=== PATIENT | female | born 1970 | race African-American/Black ===

== ENCOUNTER 2016-09-28 07:38 | Day surgery (SDC) | payer BC ==
[2016-09-28] MEDS ORDERED: IRON SUCROSE INJECTION 100 MG in SODIUM CHLORIDE 100 ML IVPB ONE (10:00)
[2016-09-28 16:53] LABS: BASOPHIL 1.1 % (0-2.0); EOSINOPHIL 1.4 % (0-4.5); MCHC 28.9 g/dl (32.0-36.0); MEAN CELL VOLUME 60.5 fl (80-96); MEAN PLT VOLUME 9.1 fl (7.5-11.1); PLATELET COUNT 285 K/MM3 (134-434); RDW 24.7 % (11.6-15.6); WHITE BLOOD COUNT 5.2 K/mm3 (4.0-10.0)
[2016-09-28 17:12] LABS: MCH 17.5 pg (25.7-33.7)
[2016-09-28 17:43] VITALS: BP 137/40; PULSE 84; TEMP 98.2
--- NOTE | 2016-09-28 21:13 | HP ---
Satellite [facility] - Past Medical History Allergies/Adverse Reactions: Allergies Allergy/AdvReac Type Severity Reaction Status Date / Time No Allergy Information Allergy Verified 09/27/16 16:00 Available Satellite Physical Exam - Physical Examination Vital Signs: Vital Signs Period Temp Pulse Resp BP Sys/[place] Pulse Ox Last 24 Hr 98.2 F 84 20 137/40
== END 2016-09-28 17:52 | disposition home or self-care (01) ==
LOC: JONCNONCHE 07:38 → J7W 16:25 → JONCNONCHE 17:52
PROVIDERS: ATTEND Internal Medicine Hematology & Oncology
PROC: 3E033GC Introduction of Other Therapeutic Substance into Peripheral Vein, Percutaneous Approach (ICD-10-PCS; principal; 2016-09-28)
DX: D50.9 Iron deficiency anemia, unspecified (principal)
CPT/HCPCS: 96365; J1756; 36415; 85025

== ENCOUNTER 2016-10-02 15:31 | Day surgery (SDC) | payer BC ==
[2016-10-02] MEDS ORDERED: IRON SUCROSE INJECTION 100 MG in SODIUM CHLORIDE 100 ML IVPB ONE (16:15)
[2016-10-02 16:48] LABS: BASOPHIL 1.4 % (0-2.0); EOSINOPHIL 0.6 % (0-4.5); MCHC 28.8 g/dl (32.0-36.0); MEAN CELL VOLUME 62.5 fl (80-96); MEAN PLT VOLUME 8.9 fl (7.5-11.1); NEUTROPHILS 62.9 % (42.8-82.8); PLATELET COUNT 323 K/MM3 (134-434); RDW 27.1 % (11.6-15.6); WHITE BLOOD COUNT 5.3 K/mm3 (4.0-10.0)
[2016-10-02 18:33] LABS: PLATELET ESTIMATE ADEQUATE (NORMAL)
[2016-10-02 18:34] LABS: ANISOCYTOSIS 3+; HYPOCHROMIA 3+; MACROCYTOSIS 1+; MICROCYTOSIS 2+; OVALOCYTE 1+; POIKILOCYTOSIS 1+; POLYCHROMASIA 1+; TARGET CELLS 1+
--- NOTE | 2016-10-02 20:28 | HP ---
Satellite H - Chief Complaint Chief Complaint: Patient here for f/u of anemia. reports exertioonal sob. severe fatigue.dizziness History Source: Patient Limitations to Obtaining History: No Limitations - Past Medical History Allergies/Adverse Reactions: Allergies Allergy/AdvReac Type Severity Reaction Status Date / Time No Known Drug Allergies Allergy Verified 10/02/16 15:55 ...LMP: 10/01/16 Satellite Physical Exam - Physical Examination Vital Signs: Vital Signs Period Temp Pulse Resp BP Sys/[place] Pulse Ox Last 24 Hr 97.5 F-98.7 F 71-93 18-18 132-138/69-88 General Appearance: Well Nourished Lung: Clear to auscultation Heart: Regular rate & rhythm, Normal S1, Normal S2 Abdomen: Soft, No tenderness, Normal bowel sounds Extremities: No edema Neurological: Intact Satellite Impression/Plan - Impression/Plan Impression: 46 y/o patient with iron deficiency anemia. symptomatic anemia. will transfuse 1 unit PRBCS. IV iron weekly
[2016-10-03 07:33] LABS: MEAN CELL VOLUME 63.9 fl (80-96); MEAN PLT VOLUME 8.8 fl (7.5-11.1); PLATELET COUNT 278 K/MM3 (134-434); WHITE BLOOD COUNT 4.6 K/mm3 (4.0-10.0)
[2016-10-03 07:51] LABS: MCH 19.1 pg (25.7-33.7)
[2016-10-03 14:03] VITALS: BP 140/70; PULSE 77; TEMP 99.1
== END 2016-10-03 15:35 | disposition home or self-care (01) ==
LOC: JONCNONCHE 15:31 → J7W 15:31 → JONCNONCHE 10-03 15:35
PROVIDERS: ATTEND Internal Medicine Hematology & Oncology
PROC: 3E033GC Introduction of Other Therapeutic Substance into Peripheral Vein, Percutaneous Approach (ICD-10-PCS; principal; 2016-10-02)
PROC: 30233N1 Transfusion of Nonautologous Red Blood Cells into Peripheral Vein, Percutaneous Approach (ICD-10-PCS; 2016-10-02)
DX: D50.9 Iron deficiency anemia, unspecified (principal)
CPT/HCPCS: 36430; 96365; J1756; 36415; 36511; 85025; 85027; 86850; 86900; 86901; 86922; P9038; P9058

== ENCOUNTER 2016-10-09 15:37 | Day surgery (SDC) | payer BC ==
[2016-10-09] MEDS ORDERED: IRON SUCROSE INJECTION 100 MG in SODIUM CHLORIDE 95 ML IVPB ONE (16:45)
[2016-10-09 19:20] VITALS: BP 135/74; PULSE 77; TEMP 98.2
[2016-10-09 19:22] VITALS: BMI 30.9
== END 2016-10-09 19:01 | disposition home or self-care (01) ==
LOC: JONCNONCHE 15:37 → J7W 15:37 → JONCNONCHE 19:01
PROVIDERS: ATTEND Internal Medicine Hematology & Oncology
PROC: 3E033GC Introduction of Other Therapeutic Substance into Peripheral Vein, Percutaneous Approach (ICD-10-PCS; principal; 2016-10-09)
DX: D50.9 Iron deficiency anemia, unspecified (principal)
CPT/HCPCS: 96365; J1756

== ENCOUNTER 2016-10-16 16:19 | Day surgery (SDC) | payer BC ==
[2016-10-16] MEDS ORDERED: IRON SUCROSE INJECTION 100 MG in SODIUM CHLORIDE 100 ML IVPB ONE (16:45)
[2016-10-16 18:35] VITALS: BP 155/99; PULSE 72; TEMP 98.3
[2016-10-18 08:07] LABS: SERUM IRON 31 ug/dL (27-159); TOTAL IRON BINDING CAPACITY 375 ug/dL (250-450); UIBC 344 ug/dL (131-425)
== END 2016-10-16 18:40 | disposition home or self-care (01) ==
LOC: JCHEMO 16:19 → J7W 16:22 → JCHEMO 18:40
PROVIDERS: ATTEND Internal Medicine Hematology & Oncology
PROC: 3E033GC Introduction of Other Therapeutic Substance into Peripheral Vein, Percutaneous Approach (ICD-10-PCS; principal; 2016-10-16)
DX: D50.9 Iron deficiency anemia, unspecified (principal)
CPT/HCPCS: 36415; 82728; 83540; 83550; 96365; J1756

== ENCOUNTER 2016-10-23 08:04 | Day surgery (SDC) | payer BC ==
--- NOTE | 2016-10-23 16:20 | HP ---
Satellite [facility] - Chief Complaint History of Present Illness: Here for venofer. She reports much better after receiving blood last time and she feels no SOB - Past Medical History Allergies/Adverse Reactions: Allergies Allergy/AdvReac Type Severity Reaction Status Date / Time No Known Drug Allergies Allergy Verified 10/02/16 15:55 ...LMP: 10/01/16 Satellite Physical Exam - Physical Examination General Appearance: Well Nourished, Well Developed, Alert & Oriented x3 Lung: Clear to auscultation Heart: Regular rate & rhythm, Normal S1, Normal S2 Abdomen: Soft, No tenderness Extremities: No edema Neurological: Alert, Oriented Satellite Impression/Plan - Impression/Plan Impression: Will proceed with IV venofer today. She reports feeling much better. she is aware to follow-up in the office. She will come for next dose of venofer next week
[2016-10-23] MEDS ORDERED: IRON SUCROSE INJECTION 100 MG in SODIUM CHLORIDE 100 ML IVPB ONE (16:30)
[2016-10-23 17:55] VITALS: TEMP 98.5
[2016-10-23 18:37] VITALS: BP 142/89; PULSE 87
== END 2016-10-23 18:43 | disposition home or self-care (01) ==
LOC: JONCCHEMO 08:04 → J7W 15:53 → JONCCHEMO 18:43
PROVIDERS: ATTEND Internal Medicine Hematology & Oncology
PROC: 3E033GC Introduction of Other Therapeutic Substance into Peripheral Vein, Percutaneous Approach (ICD-10-PCS; principal; 2016-10-23)
DX: D50.9 Iron deficiency anemia, unspecified (principal)
CPT/HCPCS: 82272; 96365; J1756

== ENCOUNTER 2016-10-30 07:23 | Day surgery (SDC) | payer BC ==
[2016-10-30 12:44] VITALS: PULSE 81; TEMP 98.8
[2016-10-30 13:23] VITALS: BP 102/74
[2016-10-30] MEDS ORDERED: IRON SUCROSE INJECTION 100 MG in SODIUM CHLORIDE 100 ML IVPB ONE (14:00)
== END 2016-10-30 14:43 | disposition home or self-care (01) ==
LOC: JONCNONCHE 07:23 → J7W 12:37 → JONCNONCHE 14:43
PROVIDERS: ATTEND Internal Medicine Hematology & Oncology
PROC: 3E033GC Introduction of Other Therapeutic Substance into Peripheral Vein, Percutaneous Approach (ICD-10-PCS; principal; 2016-10-30)
DX: D50.9 Iron deficiency anemia, unspecified (principal)
CPT/HCPCS: 96365; J1756

== ENCOUNTER 2016-12-10 13:48 | Day surgery (SDC) | payer BC ==
[~2016-12-10 13:48] MED LIST: IRON SUCROSE INJECTION 100 MG in SODIUM CHLORIDE 100 ML IVPB ONE
[2016-12-10 17:26] VITALS: BP 123/75; PULSE 83; TEMP 98.2
== END 2016-12-10 17:15 | disposition home or self-care (01) ==
LOC: JONCNONCHE 13:48 → J7W 16:35 → JONCNONCHE 17:15
PROVIDERS: ATTEND Internal Medicine Hematology & Oncology
PROC: 3E033GC Introduction of Other Therapeutic Substance into Peripheral Vein, Percutaneous Approach (ICD-10-PCS; principal; 2016-12-10)
DX: D50.9 Iron deficiency anemia, unspecified (principal); K90.9 Intestinal malabsorption, unspecified
CPT/HCPCS: 96365; 96417; J1756

== ENCOUNTER 2017-01-15 07:39 | Day surgery (SDC) | payer BC ==
[2017-01-15] MEDS ORDERED: IRON SUCROSE INJECTION 100 MG in SODIUM CHLORIDE 100 ML IVPB ONE (09:00)
[2017-01-15 16:23] VITALS: TEMP 97.9
[2017-01-15 18:01] VITALS: BP 136/85; PULSE 92
== END 2017-01-15 18:42 | disposition home or self-care (01) ==
LOC: JONCNONCHE 07:39 → J7W 15:40 → JONCNONCHE 18:42
PROVIDERS: ATTEND Internal Medicine Hematology & Oncology
PROC: 3E033GC Introduction of Other Therapeutic Substance into Peripheral Vein, Percutaneous Approach (ICD-10-PCS; principal; 2017-01-15)
DX: D50.9 Iron deficiency anemia, unspecified (principal); K90.9 Intestinal malabsorption, unspecified
CPT/HCPCS: 96365; J1756

== ENCOUNTER 2017-02-12 16:10 | Day surgery (SDC) | payer BC ==
[2017-02-12] MEDS ORDERED: IRON SUCROSE INJECTION 100 MG in SODIUM CHLORIDE 95 ML IVPB ONE (16:48)
[2017-02-12 18:04] VITALS: TEMP 98.4
[2017-02-12 18:19] VITALS: BP 139/73; PULSE 83
== END 2017-02-12 18:20 | disposition home or self-care (01) ==
LOC: JONCNONCHE 16:10 → J7W 16:23 → JONCNONCHE 18:20
PROVIDERS: ATTEND Internal Medicine Hematology & Oncology
PROC: 3E033GC Introduction of Other Therapeutic Substance into Peripheral Vein, Percutaneous Approach (ICD-10-PCS; principal; 2017-02-12)
DX: D50.9 Iron deficiency anemia, unspecified (principal)
CPT/HCPCS: 96365; J1756

== ENCOUNTER 2017-03-12 09:12 | Day surgery (SDC) | payer BC ==
[2017-03-11 13:20] VITALS: BMI 33.7
[2017-03-12] MEDS ORDERED: PROPOFOL 20 ML ONE ×3 (10:07)
[2017-03-12 11:17] VITALS: TEMP 97.8
[2017-03-12 12:03] VITALS: BP 129/72; PULSE 63
--- NOTE | 2017-03-15 12:28 | PATH ---
Surgical Pathology Report Patient Name: DEVANTE ORR [facility]. Rec. #: [id number] /Age/Gender: 1970 (Age: 46) / F Account: [id number] Location: U-ENDOSCOPY Taken: 03/12/2017 Received: 03/12/2017 Reported: 03/15/2017 Physicians: Mahnaz Acñua M.D. Specimen(s) Received A: BX JEJUNUM B: BX GASTRIC POUCH POLYP C: BX GASTRIC ANASTOMOSIS D: BX GASTRIC POUCH Clinical History Preoperative diagnosis: Iron deficiency anemia, bariatric surgery status Postoperative diagnosis: Gastric bypass, hiatal hernia, atrophic gastritis, gastric pouch polyp, normal colon screening Final Diagnosis A. JEJUNUM, BIOPSY: SMALL INTESTINAL MUCOSA WITH NO PATHOLOGIC CHANGES. NO HISTOLOGIC EVIDENCE OF GLUTEN SENSITIVE ENTEROPATHY (CELIAC SPRUE) IDENTIFIED. B. STOMACH, GASTRIC POUCH POLYP, BIOPSY: GASTRIC FUNDIC MUCOSA WITH FOCAL ULCERATION. NO ADENOMATOUS OR HYPERPLASTIC CHANGES IDENTIFIED. IMMUNOSTAIN FOR H. PYLORI IS NEGATIVE. C. STOMACH, GASTRIC ANASTOMOSIS, BIOPSY: GASTRIC MUCOSA WITH FOCAL FOVEOLAR HYPERPLASIA, AND SMALL INTESTINAL-TYPE MUCOSA. NO DYSPLASIA IDENTIFIED. IMMUNOSTAIN FOR H. PYLORI IS NEGATIVE. D. STOMACH, POUCH, BIOPSY: GASTRIC FUNDIC MUCOSA WITH FOCAL HYPERPLASTIC CHANGES. FOCAL SUPERFICIAL ULCERATION IS PRESENT. NO ADENOMATOUS CHANGE IDENTIFIED. IMMUNOSTAIN FOR H. PYLORI IS NEGATIVE. Electronically Signed Ajith Cheung M.D. Gross Description A. Received in formalin, labeled "biopsy jejunum" are 4 cat, irregular portions of soft tissue ranging from 0.2-1.1 cm. in greatest dimension. The specimens are submitted in toto in one cassette. B. Received in formalin, labeled "biopsy gastric pouch polyp" is a cat, irregular portion of soft tissue measuring 0.3 cm. in greatest dimension. The specimen is submitted in toto in one cassette. C. Received in formalin, labeled "biopsy gastric anastomosis" are 3 cat, irregular portions of soft tissue ranging from 0.3-0.4 cm. in greatest dimension. The specimens are submitted in toto in one cassette. D. Received in formalin, labeled "biopsy gastric pouch" are 3 cat, irregular portions of soft tissue ranging from 0.1-0.3 cm. in greatest dimension. The specimens are submitted in toto in one cassette. 03/12/201703/12/2017
== END 2017-03-12 12:08 | disposition home or self-care (01) ==
LOC: JASU-ENDO 09:12
PROVIDERS: ATTEND Internal Medicine Gastroenterology
PROC: 0DJD8ZZ Inspection of Lower Intestinal Tract, Via Natural or Artificial Opening Endoscopic (ICD-10-PCS; principal; 2017-03-12 10:15)
DX: D50.9 Iron deficiency anemia, unspecified (principal); Z98.84 Bariatric surgery status
CPT/HCPCS: 84703; 88305-TC; 88342-TC

== ENCOUNTER 2017-04-16 07:22 | Day surgery (SDC) | payer BC ==
[2017-04-16] MEDS ORDERED: IRON SUCROSE INJECTION 100 MG in SODIUM CHLORIDE 100 ML IVPB ONE (10:00)
[2017-04-16 17:10] VITALS: TEMP 97.9
[2017-04-16 17:12] VITALS: BP 149/88; PULSE 83
== END 2017-04-16 17:12 | disposition home or self-care (01) ==
LOC: JONCNONCHE 07:22 → J7W 16:05 → JONCNONCHE 17:12
PROVIDERS: ATTEND Internal Medicine Hematology & Oncology
PROC: 3E033GC Introduction of Other Therapeutic Substance into Peripheral Vein, Percutaneous Approach (ICD-10-PCS; principal; 2017-04-16)
DX: D50.9 Iron deficiency anemia, unspecified (principal)
CPT/HCPCS: 96365; J1756